=== PATIENT | male | born 1955 | race African-American/Black ===

== ENCOUNTER 2017-11-13 10:14 | Emergency (ER) | payer SELFPAY ==
[~2017-11-13] VITALS: Ht 200.7 cm; Wt 129.3 kg
[2017-11-13] MEDS ORDERED: methylPREDNIS SUCC 125 MG/2ML IVP ONE (10:30)
[2017-11-13] MEDS ORDERED: ALBUTEROL/IPRATROPIUM 3 ML NEB NEB ONE (10:30)
[2017-11-13] MEDS ORDERED: ASPIRIN 81 MG CHEW PO ONE (10:30)
--- NOTE | 2017-11-13 10:32 | ER Report ---
History and Physical Time Seen By MD: 10:16 Hx. of Stated Complaint: COUGH AND CHEST PAIN. HPI/ROS CC: Chest pain HPI: 62-year-old male with a past medical history of diabetes, hypertension, arthritis presents to the emergency department per POV. Patient states that he started having chest pain in the right upper chest yesterday. It is continued it is somewhat reproducible but it also is dull in nature. He states that there is some pressure. He is rating his pain as a 7 out of 10. Slightly short of breath. Denies nausea vomiting or diaphoresis. He states that he's been fighting a chest cold for the last 3-4 days. Nonproductive cough. Denies any fever or chills. No sick contacts. There are no alleviating factors activity makes it worse. ROS: 12 point review of systems essentially negative other than what's mentioned in history of present illness. NURSES AND OLD MEDICAL RECORDS: Reviewed PMH: Reviewed SURGICAL HX: Reviewed FAMILY HX: Noncontributory SOCIAL HX: Denies smoking alcohol or illicit drugs. VITAL SIGNS: Reviewed CONSTITUTIONAL: 62-year-old male in minimal to moderate distress. PHYSICAL EXAM: HEENT: Pupils equal round reactive to light and accommodate, EOMI, tympanic membranes pearly white umbo present with good light reflex. Lips dry mucous membranes moist gums nonbleeding uvula midline and rises equally with phonation, oropharynx noninjected, teeth intact. NECK: Neck supple, thyroid not appreciated, anterior and posterior cervical lymphadenopathy not appreciated. Trachea midline and rises equally with phonation. CARDIAC: S1-S2 regular rate rhythm no murmurs rubs or gallops. LUNGS: Lungs clear bilaterally posteriorly in all polanco. Good air movement. ABDOMEN: Abdomen soft, nondistended, bowel sounds active in all 4 quadrants, no bruits noted, no CVA tenderness. MUSCULOSKELETAL: Strength 5 out of 5 x 4 extremities, no deformities noted. NEUROLOGIC: Patient alert and oriented by 3 Allergies: Coded Allergies: levofloxacin (Verified Allergy, Unknown, 11/13/17) Home Meds Reported Medications Etanercept (ENBREL) 25 Mg Vial, 25 MG SQ, VIAL 11/13/17 Metoprolol Tartrate (METOPROLOL TARTRATE) 25 Mg Tablet, 25 MG PO BID, TAB 11/13/17 Indomethacin (INDOMETHACIN) 75 Mg Capsule.er, 75 MG PO 11/13/17 Lisinopril (LISINOPRIL) 20 Mg Tablet, 20 MG PO QDAY, TAB 11/13/17 Rosuvastatin Calcium (CRESTOR) 10 Mg Tab, 10 MG FT QDAY, TAB 11/13/17 Tofacitinib Citrate (XELJANZ) 5 Mg Tablet, 5 MG PO 11/13/17 Folic Acid (FOLIC ACID) 1 Mg Tablet, 1 MG PO QDAY, TAB 11/13/17 Glipizide (GLIPIZIDE XL) 10 Mg Tab.er.24, 10 MG PO 11/13/17 Glipizide (GLIPIZIDE XL) 5 Mg Tab.er.24, 5 MG PO 11/13/17 Discontinued Reported Medications Apixaban (ELIQUIS) 5 Mg Tablet, 5 MG PO 11/13/17 Constitutional Vital Sign - Last 24 Hours 11/13/17 11/13/17 11/13/17 11/13/17 10:14 10:15 10:21 10:29 Temp 98.7 Pulse 73 72 64 Resp 102 20 27 B/P (MAP) 176/85 (115) 176/85 Pulse Ox 91 92 91 O2 Delivery Room Air 11/13/17 11/13/17 11/13/17 11/13/17 10:44 10:59 11:00 11:00 Pulse 64 62 65 Resp 16 B/P (MAP) 153/103 (120) Pulse Ox 93 O2 Delivery Room Air 11/13/17 11/13/17 11/13/17 11:00 11:05 11:30 Pulse 66 Resp 16 B/P (MAP) 162/91 (114) O2 Flow Rate 2.0 Medical Decision Making Data Points Result Diagram: 11/13/17 1025 11/13/17 1025 Laboratory Hematology Test 11/13/17 10:25 Red Blood Count 4.80 M/uL (4.00-5.60) Mean Corpuscular Volume 87.7 fL (80.0-96.0) Mean Corpuscular Hemoglobin 30.7 pg (26.0-33.0) Mean Corpuscular Hemoglobin Concent 35.1 g/dL (32.0-36.0) Red Cell Distribution Width 13.7 % (11.5-14.5) Mean Platelet Volume 8.2 fL (7.2-11.1) Neutrophils (%) (Auto) 51.8 % (39.4-72.5) Lymphocytes (%) (Auto) 31.4 % (17.6-49.6) Monocytes (%) (Auto) 12.4 % (4.1-12.4) Eosinophils (%) (Auto) 3.7 % (0.4-6.7) Basophils (%) (Auto) 0.7 % (0.3-1.4) Nucleated RBC Relative Count (auto) 0.0 /100WBC Neutrophils # (Auto) 4.0 K/uL (2.0-7.4) Lymphocytes # (Auto) 2.4 K/uL (1.3-3.6) Monocytes # (Auto) 1.0 K/uL (0.3-1.0) Eosinophils # (Auto) 0.3 K/uL (0.0-0.5) Basophils # (Auto) 0.1 K/uL (0.0-0.1) Nucleated RBC Absolute Count (auto) 0.00 K/uL Sodium Level 136 mmol/L (137-145) Potassium Level 4.1 mmol/L (3.5-5.0) Chloride Level 99 mmol/L (98-107) Carbon Dioxide Level 24 mmol/L (22-30) Blood Urea Nitrogen 17 mg/dl (9-21) Creatinine 1.20 mg/dl (0.66-1.25) Glomerular Filtration Rate Calc > 60.0 Random Glucose 183 mg/dl (75-110) Calcium Level 9.5 mg/dl (8.4-10.2) Total Bilirubin 1.0 mg/dl (0.2-1.3) Aspartate Amino Transf (AST/SGOT) 35 U/L (0-35) Alanine Aminotransferase (ALT/SGPT) 43 U/L (0-56) Alkaline Phosphatase 108 U/L (0-126) Troponin I < 0.012 ng/ml Total Protein 8.1 gm/dl (6.3-8.2) Albumin 3.8 g/dl (3.5-5.0) Chemistry Test 11/13/17 10:25 White Blood Count 7.7 k/uL (4.5-11.0) Red Blood Count 4.80 M/uL (4.00-5.60) Hemoglobin 14.7 g/dL (14.0-18.0) Hematocrit 42.1 % (42.0-52.0) Mean Corpuscular Volume 87.7 fL (80.0-96.0) Mean Corpuscular Hemoglobin 30.7 pg (26.0-33.0) Mean Corpuscular Hemoglobin Concent 35.1 g/dL (32.0-36.0) Red Cell Distribution Width 13.7 % (11.5-14.5) Platelet Count 205 K/uL (150-450) Mean Platelet Volume 8.2 fL (7.2-11.1) Neutrophils (%) (Auto) 51.8 % (39.4-72.5) Lymphocytes (%) (Auto) 31.4 % (17.6-49.6) Monocytes (%) (Auto) 12.4 % (4.1-12.4) Eosinophils (%) (Auto) 3.7 % (0.4-6.7) Basophils (%) (Auto) 0.7 % (0.3-1.4) Nucleated RBC Relative Count (auto) 0.0 /100WBC Neutrophils # (Auto) 4.0 K/uL (2.0-7.4) Lymphocytes # (Auto) 2.4 K/uL (1.3-3.6) Monocytes # (Auto) 1.0 K/uL (0.3-1.0) Eosinophils # (Auto) 0.3 K/uL (0.0-0.5) Basophils # (Auto) 0.1 K/uL (0.0-0.1) Nucleated RBC Absolute Count (auto) 0.00 K/uL Glomerular Filtration Rate Calc > 60.0 Calcium Level 9.5 mg/dl (8.4-10.2) Total Bilirubin 1.0 mg/dl (0.2-1.3) Aspartate Amino Transf (AST/SGOT) 35 U/L (0-35) Alanine Aminotransferase (ALT/SGPT) 43 U/L (0-56) Alkaline Phosphatase 108 U/L (0-126) Troponin I < 0.012 ng/ml Total Protein 8.1 gm/dl (6.3-8.2) Albumin 3.8 g/dl (3.5-5.0) EKG/Imaging EKG Interpretation Sinus rhythm with occasional PVCs, left axis deviation, LVH, ventricular rate 72 bpm, WV interval 156 ms, QRS duration 34 ms, QT 420 ms, QTc is 459 ms. No previous ECG to compare. Imaging Chest x-ray: IMPRESSION: 1. Moderate bilateral perihilar-lower lobe interstitial opacities with bronchial thickening and vague groundglass adjacent to the right minor fissure. Findings can be seen with atypical pneumonia. Idiopathic interstitial pneumonia also within the differential. Recommend continued radiographic surveillance. ED Course/Re-evaluation ED Course Patient received Rocephin and Zithromax in the emergency department for his most likely pneumonia. Patient also received a DuoNeb treatment with improvement. Patient did receive Solu-Medrol IV and 1 dose. Patient was discharged to home on Zithromax but will not have any long-term steroids given due to his diabetes. Patient also will be given a Combivent MDI. Follow up with PCP. Patient will plan and in agreement. Re-evaluation Medical decision making includes but not excluded to acute coronary syndrome, chest wall pain, pneumonia. Decision to Disposition Date: Nov 13, 2017 Decision to Disposition Time: 11:35 Depart Departure Latest Vital Signs Vital Signs Date Time Temp Pulse Resp B/P (MAP) Pulse Ox O2 Delivery O2 Flow Rate FiO2 11/13/17 11:30 2.0 11/13/17 11:05 66 16 11/13/17 11:00 162/91 (114) 11/13/17 11:00 93 Room Air 11/13/17 10:21 98.7 Impression: Primary Impression: Community acquired pneumonia Condition: Improved Disposition: HOME OR SELF-CARE New Scripts Ipratropium/Albuterol Sulfate (COMBIVENT RESPIMAT INHAL SPRAY) 4 Gm Aer.w.adap 1 EACH IH QID for 7 Days, #1 INHALER Prov: STAR NUNEZ MD 11/13/17 Azithromycin (ZITHROMAX) 250 Mg Tablet 0 PO QDAY, #6 TAB 1 Refill Prov: STAR NUNEZ MD 11/13/17 Patient Instructions: Bacterial Pneumonia (ED) Additional Instructions: You have pneumonia. You have been given Zithromax take as directed. You will take pills for 5 days then weight another 5 days and refilled the Zithromax again and take the 2nd pack for another 5 days. You have been given Combivent. Use it as directed 3 times a day for 7 days then as needed follow-up with the regular physician. I and the staff wanted to thank you for allowing us to take care of your needs today in the emergency department at [facility]. We have tried to answer all of your questions and concerns. Please feel free to return to the emergency department for any further concerns or unanswered questions. Problem Qualifiers Primary Impression: Community acquired pneumonia Laterality: unspecified laterality Qualified Codes: J18.9 - Pneumonia, unspecified organism STAR NUNEZ MD Nov 13, 2017 10:32
[2017-11-13] MEDS ORDERED: INDO75CA PO (10:38)
[2017-11-13] MEDS ORDERED: GLIXL5 PO (10:38)
[2017-11-13] MEDS ORDERED: LISI20TA29 PO (10:38)
[2017-11-13] MEDS ORDERED: ROS10 FT (10:38)
[2017-11-13] MEDS ORDERED: TOFA5TAB PO (10:38)
[2017-11-13] MEDS ORDERED: FOLI-68 PO (10:38)
[2017-11-13] MEDS ORDERED: GLIP10TA14 PO (10:38)
[2017-11-13] MEDS ORDERED: METO25TA93 PO (10:39)
[2017-11-13 10:40] LABS: PLATELET COUNT, AUTOMATED 205 K/uL (150-450)
[2017-11-13] MEDS ORDERED: APIX5TAB PO (10:40)
--- NOTE | 2017-11-13 11:23 | RADIOLOGY IMAGING REPORT ---
FACILITY: [facility] PATIENT NAME: Dat Collier : 1955 MR: [id number] V: [id number] EXAM DATE: ORDERING PHYSICIAN: STAR NUNEZ TECHNOLOGIST: Location: [facility] [place] Patient: Dat Collier : 1955 Visit/Account:[id number] Date of Sevice: 11/13/2017 CHEST PA AND LAT HISTORY: Chest Pain COMPARISON: None FINDINGS: Cardiomediastinal contours: Normal Lungs and pleura: Moderate perihilar-lower lobe interstitial opacities with bronchial thickening. No pneumothorax or pleural effusion. Vague groundglass adjacent to the right minor fissure. Bones/soft tissues: Normal Other findings: None significant IMPRESSION: 1. Moderate bilateral perihilar-lower lobe interstitial opacities with bronchial thickening and vague groundglass adjacent to the right minor fissure. Findings can be seen with atypical pneumonia. Idiop athic interstitial pneumonia also within the differential. Recommend continued radiographic surveilla nce. Report Dictated By: Simone Garcia MD at 11/13/2017 11:17 AM Report E-Signed By: Simone Garcia MD at 11/13/2017 11:19 AM WSN:[id number]
[2017-11-13 11:30] VITALS: BP 151/92
[2017-11-13] MEDS ORDERED: ETAN25KI5 SQ (11:30)
[2017-11-13] MEDS ORDERED: AZITHROMYCIN 250 MG TAB PO ONE (11:35)
[2017-11-13] MEDS ORDERED: cefTRIAXone 1 GM VIAL IVP ONE (11:35)
[2017-11-13] MEDS ORDERED: IPRA4AER IH (11:37)
[2017-11-13] MEDS ORDERED: AZIT-1 PO (11:37)
--- NOTE | 2017-11-13 13:02 | EKG ---
FACILITY: [facility] PATIENT NAME: SUSY VACA : [id number] MR: [id number] V: [id number] EXAM DATE: ORDERING PHYSICIAN: STAR NUNEZ TECHNOLOGIST: FATEMEH Buck Reason : CP Blood Pressure : / mmHG Vent. Rate : 072 BPM Atrial Rate : 072 BPM P-R Int : 156 ms QRS Dur : 134 ms QT Int : 420 ms P-R-T Axes : 070 -44 077 degrees QTc Int : 459 ms Sinus rhythm with occasional premature ventricular complexes Left axis deviation Left ventricular hypertrophy with QRS widening Abnormal ECG No previous ECGs available Confirmed by JOSIE RIZVI ([id number]) on 11/13/2017 1:53:04 PM Referred By: MAYRA Confirmed By:JOSIE RIZVI
== END 2017-11-13 12:01 | disposition home or self-care (01) ==
LOC: ER 10:14
DX: J18.9 Pneumonia, unspecified organism (principal)
CPT/HCPCS: 71046; 84484; 85025; 93005; 94640; 96374; 96375; 99284; J0696; J2930; J7620; Q0144; 82040; 82247; 82310; 82374; 82435; 82565; 82947; 84075; 84132; 84155; 84295; 84450; 84460; 84520